=== PATIENT | female | born 1955 | race Caucasian/White ===

== ENCOUNTER 2018-07-18 19:12 | Emergency (ER) | payer OTHER ==
[2018-07-18 19:31] VITALS: BP 160/92; PULSE 60; TEMP 98; BMI 25.8
--- NOTE | 2018-07-18 19:41 | PDOC ---
History of Present Illness - General Chief Complaint: Pain, Acute Stated Complaint: PAIN DOWN THE LEFT ARM Time Seen by Provider: 07/18/18 19:41 - History of Present Illness Initial Comments: 07/18/18 19:42 Ms. Vick is a 63 yo female w/ pmh of proteinuria, preDM, prior PE (34 years ago following , not on AC) who presents for sudden onset 7/10 achy pain to left shoulder to elbow while driving. Patient reports she has been highly anxious lately; had recent presentation to neurologist 5 days ago for intermittent vision changes (resolved). Patient denies any associated symptoms of SOB, tingling, confusion, or other concerning symptoms. The patient denies chest pain, shortness of breath, headache and dizziness. Denies fever, chills, nausea, vomit, diarrhea and constipation. Denies dysuria, frequency, urgency and hematuria. Past History - Past Medical History Allergies/Adverse Reactions: Allergies Allergy/AdvReac Type Severity Reaction Status Date / Time Penicillins Allergy Verified 07/18/18 19:32 Home Medications: Ambulatory Orders Multivitamin [One-Daily Multi-Vitamin] 1 tab PO DAILY 07/18/18 Anemia: No Asthma: No Cancer: No Cardiac Disorders: No CVA: No COPD: No CHF: No DVT: No Dementia: No Diabetes: No Dialysis: No GI Disorders: No Disorders: No - Suicide/Smoking/Psychosocial Hx Smoking History: Former smoker Have you smoked in the past 12 months: No If you are a former smoker, when did you quit?: 2007 Information on smoking cessation initiated: No Hx Alcohol Use: No Drug/Substance Use Hx: No Review of Systems - Review of Systems Comments:: 07/18/18 19:43 GENERAL/CONSTITUTIONAL: No fever or chills. No weakness. HEAD, EYES, EARS, NOSE AND THROAT: No change in vision. No ear pain or discharge. No sore throat. CARDIOVASCULAR: No chest pain or shortness of breath RESPIRATORY: No cough, wheezing, or hemoptysis. GASTROINTESTINAL: No nausea, vomiting, diarrhea or constipation. GENITOURINARY: No dysuria, frequency, or change in urination. MUSCULOSKELETAL: +Left shoulder/arm aching as described. No neck or back pain. SKIN: No rash NEUROLOGIC: No headache, vertigo, loss of consciousness, or change in strength/ sensation. ENDOCRINE: No increased thirst. No abnormal weight change HEMATOLOGIC/LYMPHATIC: No anemia, easy bleeding, or history of blood clots. ALLERGIC/IMMUNOLOGIC: No hives or skin allergy. *Physical Exam - Vital Signs Last Vital Signs Temp Pulse Resp BP Pulse Ox 98 F 60 20 160/92 98 07/18/18 19:26 07/18/18 19:26 07/18/18 19:26 07/18/18 19:26 07/18/18 19:26 - Physical Exam Comments: 07/18/18 19:43 GENERAL: Awake, alert, and fully oriented, in no acute distress HEAD: No signs of trauma, normocephalic, atraumatic EYES: PERRLA, EOMI, sclera anicteric, conjunctiva clear ENT: Auricles normal inspection, hearing grossly normal, nares patent, oropharynx clear without exudates. Moist mucosa NECK: Normal ROM, supple, no lymphadenopathy, JVD, or masses LUNGS: No distress, speaks full sentences, clear to auscultation bilaterally HEART: Regular rate and rhythm, normal S1 and S2, no murmurs, rubs or gallops, peripheral pulses normal and equal bilaterally. ABDOMEN: Soft, nontender, normoactive bowel sounds. No guarding, no rebound. No masses EXTREMITIES: Normal inspection, Normal range of motion, no edema. No clubbing or cyanosis. NEUROLOGICAL: Cranial nerves II through XII grossly intact. Normal speech, normal gait, no focal sensorimotor deficits SKIN: Warm, Dry, normal turgor, no rashes or lesions noted. Moderate Sedation - Procedure Monitoring Vital Signs: Procedure Monitoring Vital Signs Temperature 98 F 07/18/18 19:26 Pulse Rate 60 07/18/18 19:26 Respiratory Rate 20 07/18/18 19:26 Blood Pressure 160/92 07/18/18 19:26 O2 Sat by Pulse Oximetry (%) 98 07/18/18 19:26 ED Treatment Course - LABORATORY CBC & Chemistry Diagram: 07/18/18 20:30 07/18/18 20:30 Medical Decision Making - Medical Decision Making 07/18/18 20:19 Ms. Vick is a 63 yo female w/ pmh as described who presents for evaluation of left arm symptoms concerning for muscle strain/spasm vs. atypical chest pain vs. anxiety driven symptoms. Patient currently well appearing and resting comfortably. Will evaluate w/ CBC/CMP/Cardiac labs / EKG / CXR to r/o acute process. 07/18/18 21:56 Patient labs grossly wnl as below. EKG slightly bradycardic at 56 bpm however otherwise normal. Initial portable CXR concerning for left diaphragm blunting. Repeat formal w/ lateral confirmed significant fluid in left lower lobe. Chest CT ordered for further evaluation. 07/18/18 22:33 Discussed results with patient - patient is unsure if insurance will cover CT at this hospital and would like to follow-up outpatient. Given stable vitals and labs non-concerning as below, believe patient is stable for outpatient follow-up. Paged patient's PCP and discussed with covering provider Dr. Little positive findings who will relay to PCP. Discharging patient to home for further outpatient follow-up. Laboratory Results - last 24 hr 07/18/18 07/18/18 20:30 20:30 WBC 7.2 RBC 4.44 Hgb 14.1 Hct 40.8 MCV 91.8 MCH 31.7 MCHC 34.5 RDW 13.3 Plt Count 169 MPV 8.8 Absolute Neuts (auto) 5.9 Neutrophils % 82.1 Lymphocytes % 12.6 Monocytes % 3.9 Eosinophils % 0.1 Basophils % 1.3 Nucleated RBC % 0 Sodium 139 Potassium 4.3 Chloride 105 Carbon Dioxide 27 Anion Gap 7 L BUN 23 H Creatinine 0.6 Creat Clearance w eGFR > 60 Random Glucose 98 Calcium 9.4 Total Bilirubin 0.5 AST 19 ALT 31 Alkaline Phosphatase 68 Creatine Kinase 55 Troponin I < 0.02 Total Protein 7.4 Albumin 4.0 *DC/Admit/Observation/Transfer Diagnosis at time of Disposition: Pleural effusion - Discharge Dispostion Disposition: HOME - Referrals Referrals: Yaa Bullock MD [Primary Care Provider] - - Patient Instructions Printed Discharge Instructions: DI for Pleural Effusion Additional Instructions: You were evaluated today in the ER and found to have fluid in your lungs. We recommended chest CT which you declined at this time. We contacted your primary care provider and relayed results. Please follow-up outpatient with primary care provider as soon as possible as discussed. Return to ER if any difficulty breathing, pain, fever, or other concerning symptoms. - Post Discharge Activity
--- NOTE | 2018-07-18 20:00 | PDOC ---
Attending Attestation - HPI HPI: This patient is a 63 year old female with PMHx of proteinuria, pre-diabetes, PE (34 years ago, s/p , not on blood thinners currently), TMJ, who presents with left arm muscle aches since 5pm . Patient describes her left arm pain as achy, radiates from back of her shoulder to her elbow, lasting for 1 minute, rates 7/10. She states that the pain did not return. She states that she does carry her bag on her left shoulder and is left handed. Denies any numbness or tingling. Patient states that she has been very anxious recently. She states that she recently saw a PCP and is going to see a neurologist for visual changes that she had 4 days ago. At the time she reports blurry/ distorted vision and states that she felt like her eyes went to the side. She also took her blood pressure and noted it to be elevated. She reports multiple stressors including work. Patient states that she is eating and sleeping normally. She reports healthy diet and exercise. She states that she recently lost 80-90 lbs. Denies any sob. Visual changes, nausea, vomiting, urinary changes, no other focal neurological changes. Allergies: penicillin PCP: Yaa Bullock Family Hx: parents from cancer, both were cigarette smokers 07/18/18 21:04 - Physicial Exam PE: GENERAL: Awake, alert, and fully oriented, in no acute distress HEAD: No signs of trauma EYES: PERRLA, EOMI, sclera anicteric, conjunctiva clear ENT: Auricles normal inspection, hearing grossly normal, nares patent, oropharynx clear without exudates. Moist mucosa NECK: Normal ROM, supple, no lymphadenopathy, JVD, or masses LUNGS: Breath sounds equal, clear to auscultation bilaterally. No wheezes, and no crackles HEART: Regular rate and rhythm, normal S1 and S2, no murmurs, rubs or gallops ABDOMEN: Soft, nontender, normoactive bowel sounds. No guarding, no rebound. No masses EXTREMITIES: Normal range of motion, no edema. No clubbing or cyanosis. No cords, erythema, or tenderness NEUROLOGICAL: Cranial nerves II through XII grossly intact. Normal speech, normal gait SKIN: Warm, Dry, normal turgor, no rashes or lesions noted. <Ijeoma Rodriguez - Last Filed: 07/18/18 21:04> - Resident Resident Name: Juan Miguel Torres - ED Attending Attestation I have performed the following: I have examined & evaluated the patient, The case was reviewed & discussed with the resident, I agree w/resident's findings & plan - Medical Decision Making 07/18/18 22:30 Pt is concerned that none of her exams at this hospital will be covered by her "[employer]" med insurance, as this is not a network hospital. As a result, she is refusing admission for further w/up of her pleural effusion and she is refusing CT scan of her lungs. Pt will be discharged back to her PMD Dr. Bullock. We are paging the PMD to speak to her. 07/18/18 22:[address] Bullock's partner and apprised him of the pleural efusion and the need to work it up as an outpatient. <Joann Singh - Last Filed: 07/18/18 22:59>
[2018-07-18 20:49] LABS: BASO % 1.3 % (0-2.0); EOS % 0.1 % (0-4.5); HEMATOCRIT 40.8 % (32.4-45.2); HEMOGLOBIN 14.1 GM/dL (10.7-15.3); LYMPH % 12.6 % (8-40); MCH 31.7 pg (25.7-33.7); MCHC 34.5 g/dl (32.0-36.0); MEAN CELL VOLUME 91.8 fl (80-96); MEAN PLT VOLUME 8.8 fl (7.5-11.1); MONO % 3.9 % (3.8-10.2); NEUT % 82.1 % (42.8-82.8); PLATELET COUNT 169 K/MM3 (134-434); RBC 4.44 M/mm3 (3.60-5.2); RDW 13.3 % (11.6-15.6); WHITE BLOOD COUNT 7.2 K/mm3 (4.0-10.0)
[2018-07-18 21:12] LABS: ALK PHOS 68 U/L (45-117); ANION GAP 7 MMOL/L (8-16); BILIRUBIN,TOTAL 0.5 mg/dL (0.2-1); BLOOD UREA NITROGEN 23 mg/dL (7-18); CALCIUM 9.4 mg/dL (8.5-10.1); CHLORIDE 105 mmol/L (98-107); CO2 27 mmol/L (21-32); CREATININE 0.6 mg/dL (0.55-1.3); GLUCOSE,RANDOM 98 mg/dL (74-106); POTASSIUM 4.3 mmol/L (3.5-5.1); SGOT/AST 19 U/L (15-37); SGPT/ALT 31 U/L (13-61); SODIUM 139 mmol/L (136-145); TOT PROT 7.4 g/dl (6.4-8.2)
--- NOTE | 2018-07-19 10:48 | EKG ---
Test Reason : Blood Pressure : / mmHG Vent. Rate : 056 BPM Atrial Rate : 056 BPM P-R Int : 202 ms QRS Dur : 108 ms QT Int : 432 ms P-R-T Axes : 066 058 061 degrees QTc Int : 416 ms SINUS BRADYCARDIA OTHERWISE NORMAL ECG NO PREVIOUS ECGS AVAILABLE Confirmed by KOMAL PONCE MD ([id number]) on 07/19/2018 10:47:39 AM Referred By: Confirmed By:KOMAL PONCE MD
== END 2018-07-18 23:00 | disposition home or self-care (01) ==
LOC: JER 19:12
DX: J90 Pleural effusion, not elsewhere classified (principal); Z86.711 Personal history of pulmonary embolism; Z87.891 Personal history of nicotine dependence; Z88.0 Allergy status to penicillin
CPT/HCPCS: 36415; 71045-TC-FY; 71046-TC-FY; 80053; 82550; 84484; 85025; 93005; 93010; 99284-25

== ENCOUNTER 2019-05-12 17:12 | Emergency (ER) | payer OTHER ==
[2019-05-12] MEDS ORDERED: ACETAMINOPHEN 325 MG TABLET (FP) PO ONE (17:23)
[2019-05-12 17:29] VITALS: BP 158/89; PULSE 64; TEMP 98.5; BMI 29.2
--- NOTE | 2019-05-12 17:29 | PDOC ---
History of Present Illness - General Chief Complaint: Injury Stated Complaint: TRIP AND FALL, FOREHEAD LACERATION, LEFT KNEE PAIN Time Seen by Provider: 05/12/19 17:18 History Source: Patient Exam Limitations: No Limitations - History of Present Illness Initial Comments: 05/12/19 17:28 HPI: 63 YOF with h/o proteinuria, preDM, prior PE (34 years ago following , not on AC) only on baby ASA daily presenting after mechanical fall from standing while walking outside and her foot got caught in a sidewalk crack. she braced herself, left knee impact against the concrete and hit her head against the grass. dazed for a few seconds, but no LOC, SZ AMS or incontinence. +right forehead and cheek superficial laceration/abrasion, left knee abrasion, able to ambulate, no gait instability. no prodromal sx. tetanus: not up to date/ Review of Systems Constitutional: no fevers or chills. HEENT: facial pain, +laceration wound. no eye pain, no visual or hearing disturbances. no dental pain. Neck: no neck pain Chest: no chest pain Resp: no shortness of breath. Abdomen: no abdominal pain MUSCULOSKELETAL: No joint pain and swelling. No muscle pain/arthralgias. Back: no back pain SKIN: no redness or skin changes, no discharge, no rash. +facial wound.+ abrasion. Hematologic: no easy bruising/bleeding. NEUROLOGIC: No weakness, numbness or tingling. Allergic/Immunologic: no allergies All other systems reviewed and negative, or as documented in HPI. physical exam General: GCS 15 - NAD, well appearing HEENT: NCAT, PERRL, EOMI. Airway intact. +right forehead linear 1 cm laceration , mild bleeding, superficial with some surrounding ecchymosis. right cheek with vertical superficial abrasion, nonbleeding. No battles sign or raccoon eyes. No e/o ocular. Dentition intact. No e/o septal hematoma, nasal bridge stable. no TMJ instability. b/l T.M clear, no hemotympanum. Neck: neck supple, no midline C spine tenderness or deformity, ROM intact. No anterior mass or crepitus, trachea midline. Resp: Lungs clear bilaterally Chest: no clavicle or chest wall tenderness or crepitus CVS: RRR, 2+ pulses throughout. Abdomen: Abdomen soft, nontender, nondistended. Back: Back nontender, no midline spinal tenderness along cervical/thoracic/ lumbar spine, FROM, no stepoffs. MSK: Pelvis stable, Extremities symmetric, no focal areas of tenderness or deformities, proximal and distally; no pain on axial loading. FROM in all extrem. no joint laxity particularly over left knee Neuro: Alert, oriented appropriately. CN II-XII grossly symmetric and intact. no focal neuro deficits. Sensation and strength intact throughout. Gait normal/ stable. speech clear Skin: intact, normal color and well perfused. +right forehead 1cm linear Superficial laceration, +right anterior cheek with superficial abrasion. +left knee abrasion anteriorly. 05/12/19 17:29 05/12/19 17:29 05/12/19 18:02 05/12/19 18:06 05/12/19 18:30 Past History - Past Medical History Allergies/Adverse Reactions: Allergies Allergy/AdvReac Type Severity Reaction Status Date / Time Penicillins Allergy Verified 05/12/19 17:18 Home Medications: Ambulatory Orders Multivitamin [One-Daily Multi-Vitamin] 1 tab PO DAILY 07/18/18 Aspirin [Aspirin EC] 81 mg PO DAILY 05/12/19 Anemia: No Asthma: No Cancer: No Cardiac Disorders: No CVA: No COPD: No CHF: No DVT: No Dementia: No Diabetes: No Dialysis: No GI Disorders: No Disorders: No - Psycho Social/Smoking Cessation Hx Smoking History: Former smoker Have you smoked in the past 12 months: No If you are a former smoker, when did you quit?: 2007 Hx Alcohol Use: No Drug/Substance Use Hx: No Procedures - Laceration/Wound Repair Right Frontal Wound Length: to 2.5 cm Wound Explored: clean Wound's Depth, Shape: superficial Irrigated w/ Saline: Yes Betadine Prep: No Wound Debrided: minimal Wound Repaired With: Dermabond Layer Closure: No Sterile Dressing Applied: Yes ED Treatment Course - RADIOLOGY Radiology Studies Ordered: Category Date Time Status HEAD CT WITHOUT CONTRAST [CT] Stat CT Scan 05/12/19 17:23 Ordered Medical Decision Making - Medical Decision Making 05/12/19 17:29 Trauma ddx: ICH, SDH/ EDH, C spine injury/strain, extremity sprain/fracture, pelvis fracture. MSK contusion, msk spasms. Rib fractures. Clinically doubt Intra abdominal and thoracic injuries/bleed VS reviewed, wnl Xray left knee normal joint space alignment, no acute fx or dislocation. No patellar fracture noted CT head with no intracranial pathology or head bleed, focal right forehead scalp contusion and soft tissue thickening is noted which is consistent with her fall injury. Coffee C-spine rules applied, patient is less than 65, low mechanism of injury, no high risk features to suggest potential C-spine injury. Patient does not have any midline C-spine tenderness, no focal deficits, no neck pain or midline tenderness, sitting up in the ED and ambulatory otherwise comfortable, no imaging is warranted given low suspicion for C-spine injury at this time. boostrix updated declined tylenol lac repair with procedure note documented, dermabond, area cleaned and dressed The patient had a right forehead laceration that was 1 cm in length. The wound was irrigated and cleaned. No foreign bodies were appreciated. It was subsequently closed with Dermabond in 4 layers. remainder of abrasions cleaned with bacitracin and bandaid. Discussed results with patient. Rest ice and elevation. Pain control with OTC meds including motrin/tylenol as needed every 6 hours; no narcotics needed. wound care and closed head injury precautions/instructions provided. Please return to ED for increased pain, weakness, numbness/tingling, fever, or redness. 05/12/19 18:03 05/12/19 18:07 05/12/19 18:13 05/12/19 18:30 Discharge - Discharge Information Problems reviewed: Yes Clinical Impression/Diagnosis: Abrasion Laceration of forehead Qualifiers: Encounter type: initial encounter Qualified Code(s): S01.81XA - Laceration without foreign body of other part of head, initial encounter Closed head injury Qualifiers: Encounter type: initial encounter Qualified Code(s): S09.90XA - Unspecified injury of head, initial encounter Condition: Stable Disposition: HOME - Admission No - Follow up/Referral Referrals: Yaa Bullock MD [Primary Care Provider] - - Patient Discharge Instructions Patient Printed Discharge Instructions: DI for Laceration Repair With Dermabond , How to Prevent Falls, DI for Closed Head Injury, DI for Abrasion Additional Instructions: Wound dressed with topical Bacitracin and sterile gauze over the superficial abrasion on your cheek and knee. . Follow up with your primary care doctor within 48-72 hours for a wound check. Apply bacitracin or neosporin twice a day with warm soaks and cover with gauze/ dressings to those areas only - For your forehead that was repaired with the glue called Dermabond, do not apply bacitracin or neosporin, keep in place and will naturally fall off in 1 week good wound cleaning and instructions as above will allow for proper healing, minimizing infection and scar formation. - your tetanus was updated today Return to the ED for any worsening pain, redness, streaking (red lines), swelling, fever or chills. Keep the wound clean and as dry as possible. Do not immerse or soak the wound in water. This means no swimming, washing dishes (unless thick rubber gloves are used), baths, or hot tubs until the stitches are removed or after about one to two weeks . Leave original bandages on the wound for the first 24 hours. After this time, showering or rinsing is recommended, rather than bathing. the first day, remove old bandages and gently cleanse the wound with soap and water. Your CT scan did not show any bleed, which is reassuring Follow up with your primary care doctor within 48-72 hours. Rest. Take Acetaminophen (Tylenol) every 4-6 hours, as needed, for pain. Often individuals develop a headache associated with nausea in the days/hours after a head injury. This is called a concussion and does not warrant a return to the ED UNLESS: you develop significant worsening of pain, profuse vomiting, dizziness, changes in vision, difficulty walking/speaking, weakness or numbness to your extremities. - Post Discharge Activity
[2019-05-12] MEDS ORDERED: ACETAMINOPHEN 325 MG TABLET (FP) ONE (17:41)
[2019-05-12] MEDS ORDERED: DIPHTH,PERTUSS(ACELL),TET 0.5 ML DISP.SYRIN IM ONE ×2 (18:04→18:14)
== END 2019-05-12 18:40 | disposition home or self-care (01) ==
LOC: FER 17:12
PROC: 0HQ1XZZ Repair Face Skin, External Approach (ICD-10-PCS; principal; 2019-05-12)
PROC: 3E0234Z Introduction of Serum, Toxoid and Vaccine into Muscle, Percutaneous Approach (ICD-10-PCS; 2019-05-12)
DX: S01.81XA Laceration without foreign body of other part of head, initial encounter (principal); S00.81XA Abrasion of other part of head, initial encounter; S80.212A Abrasion, left knee, initial encounter; W01.198A Fall on same level from slipping, tripping and stumbling with subsequent striking against other object, initial encounter; Y93.01 Activity, walking, marching and hiking; Y92.480 Sidewalk as the place of occurrence of the external cause; R73.03 Prediabetes; Z86.711 Personal history of pulmonary embolism; Z79.82 Long term (current) use of aspirin; Z88.0 Allergy status to penicillin; Z87.891 Personal history of nicotine dependence
CPT/HCPCS: 70450-TC; 73562-TC-LT-FY; 90715; 99283-25